=== PATIENT | female | born 1990 | race Caucasian/White ===

== ENCOUNTER 2020-06-23 15:43 | Emergency (ER) | payer OTHER, SELFPAY ==
--- NOTE | ~2020-06-23 | XR_ITS ---
EXAMINATION: XR chest 1V portable INDICATION: Shortness of breath and cough, prior COVID 19 infection TECHNIQUE: Portable AP chest at 1738 hours COMPARISON: 06/04/2019 FINDINGS: The lungs are free of acute opacities. There is no pleural effusion or pneumothorax. The ca rdiomediastinal silhouette is normal. IMPRESSION: 1. No acute cardiopulmonary abnormality. Reviewed, dictated and finalized at location [facility]
[2020-06-23 16:16] VITALS: BP 97/60; PULSE 94; RESP 18; TEMP 36.3; O2SAT 100
[2020-06-23 16:33] LABS: Basophils Percent Auto 0.3 % (0.2-1.2); Eosinophils Absolute Auto 0.3 K/mm3 (0-0.3); Eosinophils Percent Auto 3.3 % (0-4.4); Hemoglobin 13.3 g/dL (12.0-15.0); Immature Granulocyte Absolute 0.02 K/mm3 (0.00-0.031); Immature Granulocyte Percent A 0.2 % (0-0.5); Lymphocytes Absolute Auto 2.84 K/mm3 (0.9-3.2); Lymphocytes Percent Auto 32.3 % (18.3-44.2); Mean Corpuscular HGB Conc 33.3 g/dl (32-36); Mean Corpuscular Hemoglobin 29.6 pg (26-34); Mean Corpuscular Volume 88.9 fl (80-100); Mean Platelet Volume 9.1 fl (7.4-10.4); Monocytes Absolute Auto 0.7 K/mm3 (0.1-0.6); Neutrophils Absolute Auto 4.9 K/mm3 (1.3-6.7); Neutrophils Percent Auto 55.9 % (45.5-73.1); Platelet Count Result 339 k/mm3 (150-375); Red Cell Distribution Width 13.1 % (11.5-14.5); White Blood Count 8.8 K/mm3 (4.5-10.0)
[2020-06-23 16:45] LABS: Alanine Aminotransferase 14 U/L (4-35); Alkaline Phosphatase 63 U/L (38-126); Anion Gap 5 mmol/L (8-16); Aspartate Amino Transferase 19 U/L (14-36); Bilirubin,Total 0.3 mg/dL (0.2-1.3); Blood Urea Nitrogen 11 mg/dL (7-17); Calcium 9.2 mg/dL (8.4-10.2); Carbon Dioxide 28 mmol/L (22-30); Chloride 104 mmol/L (98-107); Estimated Glomerular Filt Rate > 60; Glucose 88 mg/dL (65-105); Sodium 137 mmol/L (137-145)
--- NOTE | 2020-06-23 17:11 | ECG_ITS ---
Measurements Intervals [place]entin Rate: 87 P: 37 RI: 162 QRS: -4 QRSD: 103 T: 11 QT: 378 QTc: 457 Interpretive Statements SINUS RHYTHM INCOMPLETE RIGHT BUNDLE BRANCH BLOCK DELAYED PRECORDIAL R/S TRANSITION LOW QRS VOLTAGE IN PRECORDIAL LEADS BORDERLINE T WAVE ABNORMALITY- INFERIOR LEADS BORDERLINE ECG Electronically Signed On 06-23-2020 19:36:09 OYSTER FISHERMAN by Kevin Bennett D.O.
--- NOTE | 2020-06-23 17:12 | ED.URI ---
HPI - URI/Sore Throat General Chief Complaint: Upper Respiratory Infection Stated Complaint: COUGH,CONGESTION X MONTHS Time Seen by Provider: 06/23/20 16:59 Source: patient Mode of arrival: ambulatory Limitations: no limitations History of Present Illness HPI Narrative: This is a 29-year-old female that presents to the emergency department for cold symptoms x1 month. Reports since the beginning of May she has had cough, congestion, chest pain, and shortness of breath. Reports initially was treated with azithromycin and felt better. Reports worsening of her symptoms over the last couple of days. Denies fever, or lower extremity edema. Related Data Home Medications Medication Instructions Recorded Confirmed buspirone mg 06/23/20 06/23/20 prazosin 06/23/20 sertraline mg 06/23/20 Allergies Allergy/AdvReac Type Severity Reaction Status Date / Time latex Allergy Unknown UKN Verified 01/12/19 14:18 amoxicillin Allergy Other Verified 06/23/20 16:58 lactose AdvReac Unknown UKN Verified 01/12/19 14:18 Review of Systems Review of Systems: Narrative: CONSTITUTIONAL: Denies fever ENT: Reports rhinorrhea, congestion. Denies sore throat CARDIOVASCULAR: Reports chest pain. Denies edema. RESPIRATORY: Reports cough and dyspnea. All systems reviewed & are unremarkable except as noted in HPI and below PMFSH Past Medical History Medical History (Updated 06/23/20 @ 18:24 by Mayte Jerome PA-C) Anxiety Depression Social History Social History (Updated 06/04/19 @ 08:54 by Serafin Schulte PA-C) Smoking status: Current some day smoker Gender identity (if verbalized by the patient): Female Exam Narrative: Exam Narrative: GENERAL: Well-appearing, obese, and in no acute distress. HEAD: Normocephalic, atraumatic. EYES: EOMI. ENT: Nares clear, no rhinorrhea or epistaxis. Mucous membranes moist. Oropharynx without tonsillar hypertrophy exudate or other lesions. Bilateral TMs pearly tao non-bulging NECK: Supple. No adenopathy or masses. CHEST: Clear to auscultation. No respiratory distress. No wheezes rales or rhonchi HEART: Regular rate and rhythm. No murmur heard. Normal peripheral pulses. EXTREMITIES: Normal range of motion. No edema. SKIN: Warm, dry, no rash. NEURO: No focal deficits. Alert and oriented x3. PSYCH: Normal mood and affect Course Vital Signs Vital signs: Vital Signs Temperature 97.3 F L 06/23/20 16:16 Pulse Rate 94 06/23/20 16:16 Respiratory Rate 18 06/23/20 16:16 Blood Pressure 97/60 L 06/23/20 16:16 Pulse Oximetry 100 06/23/20 16:16 Temperature 97.3 F L 06/23/20 16:16 Pulse Rate 94 06/23/20 16:16 Respiratory Rate 18 06/23/20 16:16 Blood Pressure 97/60 L 06/23/20 16:16 Pulse Oximetry 100 06/23/20 16:16 MDM - URI/Sore Throat MDM Narrative Medical decision making narrative: Patient presents to the emergency department for ongoing cold symptoms for the last month, that worsened over the last couple of days. She is afebrile and nontoxic-appearing. Oxygen saturation is normal on room air. CBC and metabolic panel without concerning findings. EKG is without concerning changes. D-dimer and troponin are negative. Influenza screen was negative. SARS-CoV-2 was sent. Chest x-ray without acute cardiopulmonary abnormality. Patient was updated on case findings. She was instructed on care of viral syndrome. She is to follow-up with primary care doctor. She was given warnings to return to the ER Lab Data Attestation: I reviewed the patient's lab results. Result diagrams: 06/23/20 16:28 06/23/20 16:28 Labs: Lab Results 06/23/20 06/23/20 06/23/20 Range/Units 16:28 16:28 16:28 WBC 8.8 (4.5-10.0) K/mm3 RBC 4.50 (4.2-5.4) M/mm3 Hgb 13.3 (12.0-15.0) g/dL Hct 40.0 (37.0-47.0) % MCV 88.9 (80-100) fl MCH 29.6 (26-34) pg MCHC 33.3 (32-36) g/dl RDW 13.1 (11.5-14.5) % Plt Count 339 (150-3
[2020-06-23 17:38] LABS: Prothrombin Time 13.7 Seconds (11.1-14.7)
[2020-06-23 17:39] LABS: Partial Thromboplastin Time 29.5 SECONDS (22.3-36.8)
[2020-06-23 17:43] LABS: D Dimer 0.27 ug/mL (<0.48)
[2020-06-23 17:47] LABS: NT Pro B Type Natriuretic Pept 63 PG/ML (5-100); Troponin I < 0.012 ng/mL (0.000-0.034)
[2020-06-24 18:52] LABS: SARS-CoV-2 RNA PCR Negative
== END 2020-06-23 18:42 | disposition home or self-care (01) ==
PROVIDERS: Emergency Medicine; Physician Assistant; Emergency Provider Emergency Medicine; PCP Family Medicine
DX: B34.9 Viral infection, unspecified (principal); Z20.828 Contact with and (suspected) exposure to other viral communicable diseases; I45.10 Unspecified right bundle-branch block; F41.9 Anxiety disorder, unspecified; F32.9 Major depressive disorder, single episode, unspecified; F17.200 Nicotine dependence, unspecified, uncomplicated
CPT/HCPCS: 36415; 71045; 80053; 83880; 84484; 85025; 85380; 85610; 85730; 87635; 87804; 93005; 99284; C9803; U0003